=== PATIENT | male | born 1990 | race Caucasian/White ===

== ENCOUNTER 2021-06-03 14:26 | Emergency (ER) | payer SELFPAY ==
[2021-06-03 14:55] VITALS: BP 141/99; PULSE 74; RESP 18; TEMP 37.1; O2SAT 99; BMI 23.0
[2021-06-03 15:00] VITALS: BP 140/74; PULSE 84; RESP 18; TEMP 37.1; O2SAT 99
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
[2021-06-03] MEDS: ketorolac 30 mg/mL INJ 15 MG IM (15:17)
[2021-06-03] MEDS: acetaminophen 500 mg Tablet 1000 MG PO (15:17)
[2021-06-03 16:06] VITALS: BP 140/74; PULSE 84; RESP 18; TEMP 37.1; O2SAT 99
== END 2021-06-03 16:07 | disposition home or self-care (01) ==
PROVIDERS: Emergency Provider Emergency Medicine; PCP Nurse Practitioner Family
DX: S09.8XXA Other specified injuries of head, initial encounter (principal); W22.09XA Striking against other stationary object, initial encounter
CPT/HCPCS: 70486; 96372; 99283; J1885